=== PATIENT | female | born 1960 | race Caucasian/White ===

== ENCOUNTER 2019-05-15 06:50 | Day surgery (SDC) | payer BC ==
[~2019-05-15] VITALS: Ht 160 cm; Wt 81.6 kg
[~2019-05-15 06:50] MED LIST: PRED20TA PO
[2019-05-15] MEDS ORDERED: LEVOFLOXACIN 500 MG/D5W 100 ML IV ONE (07:00)
[2019-05-15] MEDS ORDERED: CLINDAMYCIN 600 mg/50mL D5W 50 ML IV ONE (07:00)
[2019-05-15 09:26] LABS: HCG,QUAL RESULT NEGATIVE (NEGATIVE)
[2019-05-15] MEDS ORDERED: PROPOFOL 200MG/ 20ML VIAL (DIPRIVAN) IV ONE (09:30)
[2019-05-15] MEDS ORDERED: ROCURONIUM BROMIDE 10 MG/ML (ZEMURON) IV ONE (09:30)
[2019-05-15] MEDS ORDERED: DEXAMETHASONE SOD PHOSPHATE 4 MG/ML VIAL IVP ONE (09:30)
[2019-05-15] MEDS ORDERED: LR 1,000 ML IV.SOLN IV ONE (09:30)
[2019-05-15] MEDS ORDERED: SEVOFLURANE 15 MIN GAS INH ONE (09:30)
[2019-05-15] MEDS ORDERED: ONDANSETRON HCL 4 MG/2 ML VIAL IVP ONE (09:30)
[2019-05-15] MEDS ORDERED: NS IRRIG SOLN 1000 ML IR ONE (09:30)
[2019-05-15] MEDS ORDERED: MIDAZOLAM HCL 5 MG/5 ML VIAL IVP ONE (09:30)
[2019-05-15] MEDS ORDERED: KETOROLAC TROMETHAMINE 30 MG VIAL IVP ONE (09:30)
[2019-05-15] MEDS ORDERED: BUPIVACAINE /EPINEPHRINE/PF 0.25% 30 ML VIAL INJ ONE (09:30)
[2019-05-15] MEDS ORDERED: fentaNYL CITRATE 250 MCG/5 ML AMP IV ONE (09:30)
[2019-05-15] MEDS ORDERED: LR 1,000 ML IV SCH (10:52)
[2019-05-15] MEDS ORDERED: D5/0.45 NS 1,000 ML IV SCH (10:58)
[2019-05-15] MEDS ORDERED: HYDROmorphone 2 MG/ML VIAL IVP PRN ×2 (11:00)
[2019-05-15] MEDS ORDERED: MEPERIDINE HCL/PF 25 MG/ML DISP.SYRIN IVP PRN (11:00)
[2019-05-15] MEDS ORDERED: HYDROcodone/ACETAMIN 5-325 MG TAB (NORCO/ VICODIN) PO PRN ×2 (11:00)
[2019-05-15] MEDS ORDERED: HYDROmorphone 1 MG INJ. 1 MG/ML AMPUL IVP PRN ×2 (11:00)
[2019-05-15 15:14] VITALS: BP_SYST 127
== END 2019-05-15 13:10 | disposition home or self-care (01) ==
LOC: SMU 06:50 → SDS 06:50
PROVIDERS: ATTEND Colon & Rectal Surgery
DX: R92.8 Other abnormal and inconclusive findings on diagnostic imaging of breast (principal); N61.1 Abscess of the breast and nipple; N64.89 Other specified disorders of breast; N60.02 Solitary cyst of left breast; R92.0 Mammographic microcalcification found on diagnostic imaging of breast; M06.9 Rheumatoid arthritis, unspecified; E66.9 Obesity, unspecified; E11.9 Type 2 diabetes mellitus without complications; Z88.0 Allergy status to penicillin; Z79.899 Other long term (current) drug therapy
CPT/HCPCS: 19020; 19281; 19301; 84703; 87070; 87075; 88305; 88307; 88342; J1100; J1885; J1956; J2250; J2405; J2704; J3010; J3490 ×2; J7120